=== PATIENT | male | born 1960 | race Caucasian/White ===

== ENCOUNTER → 2018-12-13 | Outpatient (CLI) | payer BC ==
[~2018-12-13] MED LIST: AMOX-559 PO; KET10 PO; LOR5/325 PO
== END ==
LOC: LAB 10:45
PROVIDERS: ATTEND Internal Medicine
DX: Z02.9 Encounter for administrative examinations, unspecified (principal)

== ENCOUNTER → 2018-12-14 | Outpatient (CLI) | payer OTHER ==
[2018-12-14 07:29] LABS: PLATELET COUNT, AUTOMATED 154 K/uL (150-450)
--- NOTE | 2018-12-14 08:25 | RADIOLOGY IMAGING REPORT ---
FACILITY: [facility] - [place] PATIENT NAME: David Villalobos : 1960 MR: [id number] V: [id number] EXAM DATE: ORDERING PHYSICIAN: SERG MICHAEL TECHNOLOGIST: Location: [facility] - [place] Patient: David Villalobos : 1960 Visit/Account:[id number] Date of Sevice: 12/14/2018 L-SPINE 2 OR 3 VIEW INDICATION: Chronic low back pain for 5 years. COMPARISON: None available FINDINGS: 3 views lumbar spine. There are 5 nonrib-bearing lumbar vertebral bodies. The vertebral b odies are aligned. No compression fractures, bony lesions or spondylolysis. Mild diffuse degenerative changes are present including mild disc space narrowing, small osteophytes and mild facet arthropath y. The endplates are maintained. The pedicles are well seen. Soft tissues are unremarkable. IMPRESSION: Mild degenerative changes without acute abnormality. Report Dictated By: Mert Corbin at 12/14/2018 8:13 AM Report E-Signed By: Mert Corbin at 12/14/2018 8:14 AM WSN:[id number]
[2018-12-14 09:17] LABS: LDL CHOLESTEROL 130 mg/dl
--- NOTE | 2018-12-14 10:20 | EKG ---
FACILITY: [facility] - [place] PATIENT NAME: KAUR PORTILLO : [id number] MR: [id number] V: [id number] EXAM DATE: ORDERING PHYSICIAN: SERG MICHAEL TECHNOLOGIST: DHRUV Test Reason : PALPUTATIONS Blood Pressure : / mmHG Vent. Rate : 063 BPM Atrial Rate : 063 BPM P-R Int : 166 ms QRS Dur : 084 ms QT Int : 410 ms P-R-T Axes : 049 008 046 degrees QTc Int : 419 ms Normal sinus rhythm Normal ECG When compared with ECG of 06-MAY-2017 13:10, No significant change was found Confirmed by Naresh Morales ([id number]) on 12/14/2018 6:53:10 PM Referred By: DALE Confirmed By:Naresh Reo
== END ==
LOC: LAB 07:06
PROVIDERS: ATTEND Internal Medicine
DX: M47.896 Other spondylosis, lumbar region (principal); E78.5 Hyperlipidemia, unspecified; Z82.49 Family history of ischemic heart disease and other diseases of the circulatory system
CPT/HCPCS: 36415; 72100; 81001; 82040; 82247; 82310; 82374; 82435; 82465; 82565; 82947; 83718; 84075; 84132; 84153; 84155; 84295; 84443; 84450; 84460; 84478; 84520; 85025

== ENCOUNTER 2019-03-07 17:15 | Outpatient (RCR) | payer OTHER ==
--- NOTE | 2018-12-18 18:37 | PT INITIAL EVALUATION ---
MEDICAL DIAGNOSIS: Chronic B LBP without sciatica, B chronic knee pain TREATMENT DIAGNOSIS: same DATE OF ONSET: 10/23/06 SUBJECTIVE: David Villalobos presents to physical therapy with complaints of low back pain that started approximately 12 years ago and feels like it is getting worse. He report that has to be extremely careful with sitting for long periods or with bending. He reports that the pain started following shoveling snow in 2006. He reports the pain to be worse in the morning and gets better as the day progresses. He denies any problems with sleeping. He denies abnormal bladder control or increased pain with coughing, sneezing, or straining. He reports that he has received electrical stimulation and manipulation that have helped; however, they have never eliminated his low back pain. He rates his current pain to be 1/10. He denies any accidents, night pain, or unexplained weight loss. Pain location is L4-5 spinous and L and R sides of spinous processes. and described as discomfort. Pain scale is 1 on a ten point pain scale. REHAB PROBLEM LIST: Increased Pain Decreased ROM Decreased Strength Decreased Endurance Decreased Function Decreased ADL's PREVIOUS MEDICAL HISTORY: See EMR OCCUPATION: IT at [employer] OBJECTIVE: Posture: He demonstrated B rounded shoulders, increased thoracic kyphosis, and decreased lumbar lordosis. He does not appear to have a shift. ROM: Trunk AROM: flexion: moderate restriction with muscular end feel. extension, R and L sidegliding: NIL Palpation: TTP: L4-5 spinous and L and R sides of spinous processes around facet joints Special Tests: Repeated extension in lying: stretching during the test with decreased pain following the test with increased flexion AROM following. Static extension for 3 minutes, increased pain during the test and better following the test with increased trunk AROM following. Mobility: Independent Gait: No gait deviations noted ASSESSMENT: David will benefit from skilled physical therapy addressing the listed impairments to improve function and QOL. Based on today's examination, it appears that his initial classification is posterior derangement that responds well to extension based principles. Short Term Goals 2 weeks: Pt will demonstrate directional preference resulting in centralized low back pain to improve function and QOL. 4 weeks: If pt demonstrates a directional preference, he will demonstrate abolished low back pain to improve function and QOL. 6 weeks: Pt will return to prior level of function resulting in B UE, core, and B LE 4+/5 or greater to return to hiking, bending (without fear), or shoveling snow. Patient's Goals improve back strength be able to do things without the fear of hurting his low back. PLAN: Patient to be seen for Manual Therapy/STM/MET Strengthening/condition Range of Motion Spinal Stabilization Work Hardening/Cond Stretching Neuromuscular Re-ed Closed Chain Program Posture/Body mechanics Home Exercise Program Therapeutic Activities 2x/Week for 6 Weeks If you have any questions, comments, or concerns about this report or plan, please contact me at . Thank you, Brian James, PT, DPT MTDD
--- NOTE | 2019-01-24 18:25 | PT PLAN OF CARE ---
Physician: Noel Pimentel MD Patient is being seen: 2x/week Therapist: Brian James, PT, DPT Medical Diagnosis: Chronic B LBP without sciatica, B chronic knee pain Treatment Diagnosis: same Date of Onset: 10/23/06 Date of Initial Evaluation: 12/17/18 Date patient was last seen: 01/24/19 Number of treatments: 10 Number of cancellations/No shows: 0 INTERVENTIONS: Manual Therapy/STM/MET Strengthening/condition Range of Motion Spinal Stabilization Work Hardening/Cond Stretching Neuromuscular Re-ed Closed Chain Program Posture/Body mechanics Home Exercise Program Therapeutic Activities GOALS: 2 weeks: Pt will demonstrate directional preference resulting in centralized low back pain to improve function and QOL. 4 weeks: If pt demonstrates a directional preference, he will demonstrate abolished low back pain to improve function and QOL. 6 weeks: Pt will return to prior level of function resulting in B UE, core, and B LE 4+/5 or greater to return to hiking, bending (without fear), or shoveling snow. PATIENT'S GOAL: improve back strength be able to do things without the fear of hurting his low back. Status of Patient's Goals: Progressing Patient Compliance: Good Prognosis: Good Reasons for continuing therapy: This is a progress note for David Villalobos. He reports that he is doing well. He denies any low back pain. He does report that his low back feels weak when transitioning from trunk flexion to extension. He reports that he must stretch after sitting for an extended period of time and then is able to proceed with his daily functions. He reports that his B knees are doing well. He denies any current knee pain. He is progressing well. He is independent on his home exercise program. He has directional preference with extension in his low back region. He demonstrates significant improvements with core and B LEs strength. We will continue to address reduction of his low back injury, reduction of his B knee injuries, increase core and B LE strength, and return him to prior level of function. Posture: He demonstrated B rounded shoulders, increased thoracic kyphosis, and decreased lumbar lordosis. He does not appear to have a shift. ROM: Trunk AROM: flexion: moderate restriction with muscular end feel. extension, R and L sidegliding: NIL Palpation: TTP: L4-5 spinous process (central) Special Tests: Repeated extension in lying: stretching during the test with decreased pain following the test with increased flexion AROM following. Static extension for 3 minutes, increased pain during the test and better following the test with increased trunk AROM following. Mobility: Independent If you have any questions, please contact me at [phone]. Thank you, Brian James, PT, DPT [facility]
== END 2019-03-17 ==
LOC: PT 17:15
PROVIDERS: ATTEND Internal Medicine
DX: M54.5 Low back pain (principal); M25.561 Pain in right knee; M25.562 Pain in left knee
CPT/HCPCS: 97162

== ENCOUNTER 2019-03-21 17:15 | Outpatient (RCR) | payer OTHER ==
--- NOTE | 2019-03-20 10:28 | PT PLAN OF CARE ---
Physician: Noel Pimentel MD Patient is being seen: 2x/week Therapist: Brian James, PT, DPT Medical Diagnosis: Chronic B LBP without sciatica, B chronic knee pain Treatment Diagnosis: same Date of Onset: 10/23/06 Date of Initial Evaluation: 12/17/18 Date patient was last seen: 03/19/19 Number of treatments: 19 Number of cancellations/No shows: 1 INTERVENTIONS: Manual Therapy/STM/MET Strengthening/condition Range of Motion Spinal Stabilization Work Hardening/Cond Stretching Neuromuscular Re-ed Closed Chain Program Posture/Body mechanics Home Exercise Program Therapeutic Activities GOALS: 2 weeks: Pt will demonstrate directional preference resulting in centralized low back pain to improve function and QOL. 4 weeks: If pt demonstrates a directional preference, he will demonstrate abolished low back pain to improve function and QOL. 6 weeks: Pt will return to prior level of function resulting in B UE, core, and B LE 4+/5 or greater to return to hiking, bending (without fear), or shoveling snow. PATIENT'S GOAL: improve back strength be able to do things without the fear of hurting his low back. Status of Patient's Goals: Progressing Patient Compliance: Good Prognosis: Good Reasons for continuing therapy: This is a progress note for David Villalobos. He reports that the knees are feeling great and the pain has completely abolished and he is able to do his daily exercise routine without any problems with his knees. He reports that he bent forward over the last week and his low back returned. He reports that he has been performing his specific exercise and it is starting to feel better. He denies any current pain. He states that it has been coming and going over the last few days but is getting better. He reports that this suprised him since he was doing so well and did not have any pain and was feeling strong. He reports that he continues to frequent the gym 5 days a week. He demonstrated a return of his back pain, but he has been performing his specific exercise, which it has helped him return to full trunk AROM in all directions. Furthermore, the pain is centralized and has not spread out. He should be pain free within the next week and then we will resume his return to prior level of function. Posture: He demonstrated B rounded shoulders, increased thoracic kyphosis, and decreased lumbar lordosis. He does not appear to have a shift. ROM: Trunk AROM: flexion: NIL with muscular end feel. extension, R and L sidegliding: NIL Palpation: TTP: L4-5 spinous centralized Special Tests: Repeated extension in lying: stretching during the test with decreased pain following the test with increased flexion AROM following. Static extension for 3 minutes, increased pain during the test and better following the test with increased trunk AROM following. Mobility: Independent If you have any questions, please contact me at [phone]. Thank you, Brian James, PT, DPT [facility]
== END 2019-03-21 18:00 | disposition home or self-care (01) ==
LOC: PT 17:15
PROVIDERS: ATTEND Internal Medicine
DX: M54.5 Low back pain (principal); M25.561 Pain in right knee; M25.562 Pain in left knee